=== PATIENT | male | born 1995 | race Caucasian/White ===

== ENCOUNTER 2023-01-25 14:05 | Emergency (ER) | payer MEDICAID ==
[~2023-01-25] VITALS: Ht 162.6 cm; Wt 91.0 kg
[2023-01-25] MEDS ORDERED: LORAZEPAM 2MG/ML CPJ IV STA (14:11)
[2023-01-25] MEDS ORDERED: SODIUM CHLORIDE 0.9% 1,000 ML IV ONE ×2 (14:15→17:30)
[2023-01-25 15:42] LABS: HEMATOCRIT. 46.5 % (42.0-52.0); HEMOGLOBIN. 15.7 g/dL (14.0-18.0); MEAN CORPUSCULAR HEMOGLOBIN 29.9 pg (28.0-32.0); MEAN CORPUSCULAR VOLUME 88.8 fL (80.0-94.0); MEAN PLATELET VOLUME 10.3 fl (7.4-10.4); PLATELET 208 x1000/uL (130-400); RED BLOOD CELL COUNT 5.24 mill/uL (4.7-6.1); RED CELL DISTRIBUTION WIDTH 14.1 % (11.6-14.6)
[2023-01-25 16:05] LABS: CHLORIDE 107 mEq/L (98-107)
[2023-01-25 16:15] LABS: ETHANOL BLOOD < 10 mg/dL
[2023-01-25] MEDS ORDERED: LORAZEPAM 2MG/ML CPJ IV NR (16:15)
[2023-01-25 17:43] VITALS: BP 159/109
[2023-01-25] MEDS ORDERED: KETOROLAC 15MG/ML VIAL IV NR (18:00)
[2023-01-25 18:16] LABS: PLATELET ESTIMATE NORMAL
== END 2023-01-25 19:13 | disposition home or self-care (01) ==
LOC: ER 14:05
DX: F15.10 Other stimulant abuse, uncomplicated (principal); R00.0 Tachycardia, unspecified; F12.10 Cannabis abuse, uncomplicated
CPT/HCPCS: 36415; 80053; 80307; 80320; 80329; 84484; 85025; 96361; 96374; 99283; J2060; J7030; Z7610; J1885; G0480

== ENCOUNTER 2023-03-21 22:18 | Emergency (ER) | payer SELFPAY ==
[~2023-03-21] VITALS: Ht 165.1 cm; Wt 75.0 kg
[2023-03-21 22:22] VITALS: BP 162/88
== END 2023-03-22 02:10 | disposition left against medical advice (07) ==
LOC: ER 22:18
DX: F15.10 Other stimulant abuse, uncomplicated (principal)
CPT/HCPCS: 99283

== ENCOUNTER 2023-04-04 12:58 | Emergency (ER) | payer SELFPAY ==
[~2023-04-04] VITALS: Ht 170.2 cm; Wt 73.0 kg
[2023-04-04 13:02] VITALS: BP 183/123
== END 2023-04-04 13:51 | disposition left against medical advice (07) ==
LOC: ER 12:58
DX: Z53.21 Procedure and treatment not carried out due to patient leaving prior to being seen by health care provider (principal)
CPT/HCPCS: 99281